=== PATIENT | male | born 1985 | race African-American/Black ===

== ENCOUNTER → 2021-08-03 | Outpatient (CLI) | payer OTHER ==
--- NOTE | 2021-08-03 14:28 | REP ---
INDICATION: TESTICULAR BLOOD FLOW. COMPARISON: None. TECHNIQUE: Real-time sonographic evaluation of scrotum and contents performed. FINDINGS: Testicles are normal in size and echotexture, right testicle measuring 4.7 x 2.7 x 3.2 cm and left testicle 5.3 x 2.5 x 2.9 cm. Right testicular volume 21.2 cc, left 20.1 cc. There is no testicular mass or torsion. Blood flow is seen in each testicle with duplex Doppler evaluation. The epididymis is unremarkable bilaterally. Prominent venous structures above the left testicle measuring up to 3 mm in diameter represent a small varicocele. IMPRESSION: Normal appearing testicles. Small left varicocele superior to the left testicle. <Electronically signed by Gibson Alanis > 08/03/21 7904
== END ==
LOC: M RAD 11:56
PROVIDERS: ATTEND Physician Assistant
DX: N52.9 Male erectile dysfunction, unspecified (principal); I86.1 Scrotal varices

== ENCOUNTER → 2021-11-03 | Outpatient (REF) | LOC: M PLARAD 10:53 → M PLAIMG 10:53 | PROVIDERS: ATTEND Internal Medicine | DX: R06.02 Shortness of breath (principal); M25.561 Pain in right knee; M25.562 Pain in left knee ==

== ENCOUNTER → 2021-12-19 | Outpatient (CLI) | payer OTHER | LOC: M CARPUL 07:49 | PROVIDERS: ATTEND Physician Assistant | DX: R06.00 Dyspnea, unspecified (principal) ==

== ENCOUNTER → 2022-02-22 | Outpatient (CLI) | payer OTHER ==
[~2022-02-22] MED LIST: METHACHOLINE KIT (J7674) INH ONE
== END ==
LOC: M CARPUL 10:17
PROVIDERS: ATTEND Physician Assistant
DX: R06.00 Dyspnea, unspecified (principal)
CPT/HCPCS: 94070; J7674

== ENCOUNTER → 2022-03-20 | Outpatient (CLI) | payer OTHER | LOC: M RAD 08:56 | PROVIDERS: ATTEND Physician Assistant | DX: R06.00 Dyspnea, unspecified (principal); R93.1 Abnormal findings on diagnostic imaging of heart and coronary circulation ==